=== PATIENT | female | born 1970 | race Two or more races ===

== ENCOUNTER → 2023-12-26 07:48 | Outpatient (CLI) | payer OTHER ==
[2023-12-26 08:26] LABS: URINE APPEARANCE Clear; URINE BILIRRUBIN Negative (NEGATIVE); URINE COLOR Yellow; URINE GLUCOSE Negative (NEGATIVE); URINE KETONE Negative (NEGATIVE); URINE LEUKOCYTE Negative; URINE NITRATE Negative; URINE PROTEIN Negative (NEGATIVE)
[2023-12-26 08:31] LABS: HEMATOCRIT 32.2 % (36.0-45.00); HEMOGLOBIN 10.4 g/dL (12.0-15.00); MEAN CELL VOLUME 77.8 fL (80.00-100.00); MEAN CORPUSCULAR HEMOGLOBIN 25.1 pg (27.00-32.0); MEAN CORPUSCULAR HGB CONC 32.2 g/dl (32.0-36.0); PLATELET COUNT 313 K/uL (150-450); RED BLOOD COUNT 4.14 M/uL (4.00-6.00); RED CELL DISTRIBUTION WIDTH 16.1 % (11.5-14.5)
[2023-12-26 08:36] LABS: URINE BACTERIA 736.9 uL (0.0-1933); URINE EPITHELIAL CELLS 9.7 uL (0.0-38.8); URINE RBC 16.3 uL (0.0-20.8); URINE WBC 4.7 uL (0.0-23.2)
[2023-12-26 08:50] LABS: URINE BLOOD TRACES
[2023-12-26 09:15] LABS: ALBUMIN 3.6 gm/dL (3.4-5.0); BILIRUBIN TOTAL 0.44 mg/dL (0.3-1.2); CHOL HDL RATIO 2.9 (0-5.0); CREATININE SERUM 0.8 mg/dL (0.55-1.02); GFR 74.75; GLOBULINA 4.2 G/DL (2.4-3.5); MAGNESIUM 1.9 mg/dL (1.8-2.4); POTASSIUM 3.65 mEq/L (3.5-5.1); T4 FREE 1.14 NG/ML (0.76-1.46); TOTAL PROTEIN 7.8 gm/dL (6.4-8.2); TSH 1.61 uIU/mL (0.358-3.74)
== END | disposition home or self-care (01) ==
LOC: LAB 07:48
DX: E20.9 Hypoparathyroidism, unspecified (principal); E55.9 Vitamin D deficiency, unspecified

== ENCOUNTER 2023-12-26 08:26 | Outpatient (CLI) | payer OTHER | END 2023-12-26 08:30 | disposition home or self-care (01) | LOC: SONOGRAMA 08:26 | DX: R10.84 Generalized abdominal pain (principal) ==

== ENCOUNTER 2024-04-15 09:39 | Outpatient (CLI) | payer OTHER ==
[2024-04-15 10:49] LABS: HEMATOCRIT 35.2 % (36.0-45.00); HEMOGLOBIN 11.3 g/dL (12.0-15.00); MEAN CELL VOLUME 78.3 fL (80.00-100.00); MEAN CORPUSCULAR HEMOGLOBIN 25.2 pg (27.00-32.0); MEAN CORPUSCULAR HGB CONC 32.1 g/dl (32.0-36.0); PLATELET COUNT 267 K/uL (150-450); RED BLOOD COUNT 4.49 M/uL (4.00-6.00); RED CELL DISTRIBUTION WIDTH 14.9 % (11.5-14.5)
[2024-04-15 11:00] LABS: ERYTHROCYTE SEDIMENTATION RATE 77 mm/hr
[2024-04-15 11:51] LABS: ALBUMIN 3.7 gm/dL (3.4-5.0); BILIRUBIN TOTAL 0.57 mg/dL (0.3-1.2); CALCIUM 9.3 mg/dL (8.5-10.1); CHOL HDL RATIO 3.3 (0-5.0); CREATININE SERUM 0.81 mg/dL (0.55-1.02); GFR 73.41; GLOBULINA 3.8 G/DL (2.4-3.5); TOTAL PROTEIN 7.5 gm/dL (6.4-8.2); TSH 0.74 uIU/mL (0.358-3.74)
[2024-04-15 11:57] LABS: POTASSIUM 4.05 mEq/L (3.5-5.1)
[2024-04-15 13:09] LABS: VITAMIN D3 25 HYDROXY 58.04 ng/ml (30-120)
[2024-04-17 18:05] LABS: CALCITONIN < 2.0 pg/mL (0.0-5.0)
== END 2024-04-15 09:48 | disposition home or self-care (01) ==
LOC: LAB 09:39
DX: M15.0 Primary generalized (osteo)arthritis (principal); M25.50 Pain in unspecified joint

== ENCOUNTER 2024-05-20 10:15 | Outpatient (CLI) | payer OTHER ==
[2024-05-20 11:52] LABS: ALBUMIN 3.5 gm/dL (3.4-5.0); BILIRUBIN TOTAL 0.36 mg/dL (0.3-1.2); CALCIUM 9.1 mg/dL (8.5-10.1); CREATININE SERUM 0.73 mg/dL (0.55-1.02); GFR 82.77; GLOBULINA 4.2 G/DL (2.4-3.5); POTASSIUM 3.89 mEq/L (3.5-5.1); TOTAL PROTEIN 7.7 gm/dL (6.4-8.2)
[2024-05-22 09:05] LABS: IMMUNOGLOBULIN A 275 mg/dL (87-352)
[2024-05-23 15:10] LABS: TISSUE TRANSGLUTAMINASE IGA < 2 U/mL (0-3)
== END 2024-05-20 10:18 | disposition home or self-care (01) ==
LOC: LAB 10:15
DX: E83.52 Hypercalcemia (principal); E21.0 Primary hyperparathyroidism; E55.9 Vitamin D deficiency, unspecified; K90.0 Celiac disease

== ENCOUNTER 2024-05-24 07:53 | Outpatient (CLI) | payer OTHER ==
[2024-05-24 10:03] LABS: CREATINE CLEARANCE 123.1 ML/MIN (97-137); CREATININE SERUM 0.76 mg/dL (0.6-1.0)
== END 2024-05-24 07:55 | disposition home or self-care (01) ==
LOC: LAB 07:53
DX: E83.52 Hypercalcemia (principal); E21.0 Primary hyperparathyroidism; E55.9 Vitamin D deficiency, unspecified; K90.0 Celiac disease

== ENCOUNTER 2024-09-18 07:07 | Outpatient (CLI) | payer OTHER | END 2024-09-18 08:05 | disposition home or self-care (01) | LOC: TOM 07:07 | DX: N20.0 Calculus of kidney (principal) ==

== ENCOUNTER 2024-09-18 08:37 | Outpatient (CLI) | payer OTHER ==
[2024-09-18 10:05] LABS: BASO % 0.5 % (0.1-1.2); EOS # 0.10 (0.04-0.54); EOS % 1.8 % (0.7-7.0); LYMPH # 2.60 (1.18-3.74); LYMPH % 45.7 % (19.3-53.1); MEAN PLATELET VOLUME 9.70 fl (9.4-12.4); MONO # 0.41 (0.24-0.82); MONO % 7.2 % (4.7-12.5); NEUT # 2.54 (1.56-6.13); NEUT % 44.6 % (34.0-71.1); RED CELL DISTRIBUTION WIDTH 14.3 % (11.6-14.4)
[2024-09-18 10:15] LABS: URINE APPEARANCE Clear; URINE BILIRRUBIN Negative (NEGATIVE); URINE BLOOD NHT; URINE COLOR Yellow; URINE GLUCOSE Negative (NEGATIVE); URINE KETONE Negative (NEGATIVE); URINE LEUKOCYTE Negative; URINE NITRATE Negative; URINE PROTEIN Negative (NEGATIVE); URINE UROBILINOGEN 0.2 E.U./dl
[2024-09-18 10:19] LABS: URINE BACTERIA 8.3 uL (0.0-1933); URINE RBC 34.9 uL (0.0-20.8); URINE WBC 1.9 uL (0.0-23.2)
[2024-09-18 10:26] LABS: URINE CAST 0.00 uL (0.0-1.40); URINE EPITHELIAL CELLS 0.9 uL (0.0-38.8)
[2024-09-18 10:31] LABS: ob NEGATIVE (NEGATIVE)
[2024-09-18 11:09] LABS: ALT/SGPT 19.0 U/L (12-78); AST/SGOT 13.0 U/L (15-37); BILIRUBIN TOTAL 0.53 mg/dL (0.3-1.2); BUN CREA RATIO 15.0 (7.0-25.0); CHOL HDL RATIO 4.4 (0-5.0); CREATININE SERUM 0.72 mg/dL (0.55-1.02); GFR 84.1; GLOBULINA 4.0 G/DL (2.4-3.5); GLUCOSE FASTING 80.0 mg/dL (65-100); HDL 55.0 mg/dl (40-60); LDL 169.0 mg/dl (0-130); OSMOLALITY SERUM 281.0 MOSM/KG (275-295); T4 FREE 1.2 NG/ML (0.76-1.46); TSH 1.3 uIU/mL (0.358-3.74); VLDL 19.0 (0-39)
[2024-09-18 13:19] LABS: T3 TOTAL 1.58 ng/ml (0.846-2.02); VITAMIN D3 25 HYDROXY 37.71 ng/ml (30-120)
[2024-09-19 09:08] LABS: ESTRADIOL SERUM 22.4 pg/mL (.)
[2024-09-20 19:11] LABS: T T 23.0 ng/dL (4-50); test free 1.3 pg/mL (0.0-4.2)
== END 2024-09-18 08:39 | disposition home or self-care (01) ==
LOC: LAB 08:37
DX: E03.9 Hypothyroidism, unspecified (principal); E78.00 Pure hypercholesterolemia, unspecified; E55.9 Vitamin D deficiency, unspecified; N39.0 Urinary tract infection, site not specified; R79.9 Abnormal finding of blood chemistry, unspecified; R19.5 Other fecal abnormalities; R68.2 Dry mouth, unspecified

== ENCOUNTER 2024-11-30 10:31 | Emergency (ER) | payer OTHER ==
[~2024-11-30] VITALS: Ht 162.6 cm; Wt 77.1 kg
[2024-11-30] MEDS ORDERED: DIOVAN160 M1 PO (11:38)
[2024-11-30] MEDS ORDERED: ACETAMINOPHEN 500 MG GEL..CAP PO ONE ×2 (11:41→12:00)
[2024-11-30] MEDS ORDERED: 0.9 % SODIUM CHLORIDE 1,000 ML IV SCH (12:00)
[2024-11-30] MEDS ORDERED: DEXAMETHASONE SODIUM PHOSP/PF 10 MG/ML VIAL IV ONE (12:00)
[2024-11-30] MEDS ORDERED: RACEPINEPHRINE HCL 0.5 ML AMPUL IH ONE ×2 (12:00→14:31)
[2024-11-30] MEDS ORDERED: DEXAMETHASONE SODIUM PHOSPHATE 4 MG/ML VIAL ONE (12:41)
[2024-11-30 12:57] LABS: BASO % 0.5 % (0.1-1.2); EOS # 0.04 (0.04-0.54); EOS % 0.7 % (0.7-7.0); LYMPH # 0.54 (1.18-3.74); LYMPH % 9.6 % (19.3-53.1); MEAN PLATELET VOLUME 9.20 fl (9.4-12.4); MONO # 1.00 (0.24-0.82); NEUT # 4.03 (1.56-6.13); NEUT % 71.3 % (34.0-71.1); RED CELL DISTRIBUTION WIDTH 14.6 % (11.6-14.4)
[2024-11-30 13:10] LABS: MONO % 17.7 % (4.7-12.5)
[2024-11-30 13:23] LABS: ALT/SGPT 15.0 U/L (12-78); AST/SGOT 12.0 U/L (15-37); BILIRUBIN TOTAL 0.38 mg/dL (0.3-1.2); BUN CREA RATIO 9.0 (7.0-25.0); CREATININE SERUM 1.04 mg/dL (0.55-1.02); GFR 55.01; GLOBULINA 4.6 G/DL (2.4-3.5); GLUCOSE FASTING 102.0 mg/dL (65-100); OSMOLALITY SERUM 278.0 MOSM/KG (275-295)
[2024-11-30 13:52] LABS: COVID-19 AG NEGATIVE (NEGATIVE)
[2024-11-30] MEDS ORDERED: POTASSIUM BICARBONATE/CIT AC 25 MEQ TABLET.EFF PO ONE (14:30)
[2024-11-30] MEDS ORDERED: MEDROLPACK PO (15:26)
[2024-11-30] MEDS ORDERED: OSEL75CA PO (15:26)
[2024-11-30] MEDS ORDERED: DIABETIC TUSSI118 M3 PO (15:26)
== END 2024-11-30 16:10 | disposition home or self-care (01) ==
LOC: ER 10:31
PROVIDERS: Student in an Organized Health Care Education/Training Program
DX: J10.1 Influenza due to other identified influenza virus with other respiratory manifestations (principal); Z20.822 Contact with and (suspected) exposure to COVID-19; I10 Essential (primary) hypertension

== ENCOUNTER → 2025-01-08 10:19 | Outpatient (CLI) | payer OTHER ==
[~2025-01-08 10:19] MED LIST: DIABETIC TUSSI118 M3 PO; DIOVAN160 M1 PO; MEDROLPACK PO; OSEL75CA PO
[2025-01-08 11:14] LABS: BASO % 0.5 % (0.1-1.2); EOS # 0.10 (0.04-0.54); EOS % 1.6 % (0.7-7.0); LYMPH # 2.85 (1.18-3.74); LYMPH % 46.5 % (19.3-53.1); MEAN PLATELET VOLUME 9.30 fl (9.4-12.4); MONO # 0.49 (0.24-0.82); MONO % 8.0 % (4.7-12.5); NEUT # 2.66 (1.56-6.13); NEUT % 43.4 % (34.0-71.1); RED CELL DISTRIBUTION WIDTH 16.3 % (11.6-14.4)
[2025-01-08 12:09] LABS: ALT/SGPT 24.0 U/L (12-78); AST/SGOT 17.0 U/L (15-37); BILIRUBIN TOTAL 0.53 mg/dL (0.3-1.2); BUN CREA RATIO 20.0 (7.0-25.0); CHOL HDL RATIO 3.8 (0-5.0); CREATININE SERUM 0.64 mg/dL (0.55-1.02); GFR 96.34; GLOBULINA 4.1 G/DL (2.4-3.5); GLUCOSE FASTING 90.0 mg/dL (65-100); HDL 50.0 mg/dl (40-60); LDL 124.0 mg/dl (0-130); OSMOLALITY SERUM 286.0 MOSM/KG (275-295); VLDL 16.0 (0-39)
== END | disposition home or self-care (01) ==
LOC: LAB 10:19
DX: I11.9 Hypertensive heart disease without heart failure (principal); E78.2 Mixed hyperlipidemia

== ENCOUNTER → 2025-01-17 10:16 | Outpatient (CLI) | payer OTHER | END | disposition home or self-care (01) | LOC: LAB 10:16 | DX: E55.9 Vitamin D deficiency, unspecified (principal); R73.03 Prediabetes; E83.39 Other disorders of phosphorus metabolism; E83.41 Hypermagnesemia ==

== ENCOUNTER 2025-01-17 10:48 | Outpatient (CLI) | payer OTHER | END 2025-01-17 10:49 | disposition home or self-care (01) | LOC: NUCLEAR 10:48 | DX: M85.80 Other specified disorders of bone density and structure, unspecified site (principal); M81.0 Age-related osteoporosis without current pathological fracture ==

== ENCOUNTER 2025-01-17 12:26 | Outpatient (CLI) | payer OTHER | END 2025-01-17 12:40 | disposition home or self-care (01) | LOC: MAMO-SONO 12:26 | DX: N83.201 Unspecified ovarian cyst, right side (principal); N64.4 Mastodynia ==